=== PATIENT | male | born 1995 | race Caucasian/White ===

== ENCOUNTER 2018-01-11 11:20 | Emergency (ER) | payer OTHER, MEDICAID, SELFPAY ==
[2018-01-11 11:34] VITALS: BP 113/79; PULSE 88; RESP 19; TEMP 36.8; O2SAT 100; BMI 22.1
[2018-01-11 14:52] VITALS: BP 118/77; PULSE 74; RESP 14; O2SAT 99
[2018-01-11 16:37] LABS: Add Manual Diff / Slide Review NO; Basophils Percent Auto 0.9 % (0-2); Eosinophils Percent Auto 3.6 % (2-4); Hematocrit 38.5 % (41-53); Hemoglobin 12.9 g/dL (13.5-17.5); Lymphocytes Percent Auto 30.4 % (25-40); Mean Corpuscular HGB Conc 33.5 % (30-36); Mean Corpuscular Hemoglobin 28.5 PG (26-34); Mean Corpuscular Volume 85.1 fL (80-100); Monocytes Percent Auto 8.9 % (3-14); Neutrophils Absolute Auto 3800 /uL (3000-5900); Neutrophils Percent Auto 56.2 % (50-75); Platelet Count 316 X10^3/uL (150-400); Red Blood Cell Count 4.52 X10^6/uL (4.5-5.9); Red Cell Distribution Width 13.1 % (11.6-14.8); White Blood Cell Count 6.7 X10^3/uL (4.5-11.0)
[2018-01-11 16:50] LABS: Alanine Aminotransferase 42 IU/L (21-72); Albumin 4.3 g/dL (3.5-5.0); Albumin Globulin Ratio 1.7 (1.0-2.8); Alkaline Phosphatase 61 U/L (38-126); Aspartate Aminotransferase 33 IU/L (17-59); BUN Creatinine Ratio 11.3 (6-22); Bilirubin Total 0.8 mg/dL (0.2-1.3); Blood Urea Nitrogen 9 mg/dL (9-20); Calcium 9.4 mg/dL (8.4-10.2); Carbon Dioxide 28 mmol/L (22-32); Chloride 103 mmol/L (98-107); Estimated Glomerular Filt Rate > 60.0 mL/min (>60); Ethanol (ETOH) < 10 mg/dL; Globulin 2.6 g/dL (1.7-4.1); Glucose 84 mg/dL (70-100); HEMOLYSIS < 15 (0-50); Potassium 3.9 mmol/L (3.4-5.1); Sodium 144 mmol/L (137-145); Total Protein 6.9 g/dL (6.3-8.2)
[2018-01-11 17:02] LABS: Appearance Urine UA CLEAR; Bilirubin Urine UA 1+ (NEGATIVE); Color Urine UA ORANGE; Glucose Urine UA TRACE g/dL (Normal); Ketones Urine UA TRACE (NEGATIVE); Leukocyte Esterase Urine UA NEGATIVE (NEGATIVE); Nitrite Urine UA NEGATIVE (Negative); Occult Blood Urine UA NEGATIVE (Negative); Protein Urine UA TRACE (Negative); Specific Gravity Urine UA >=1.030 (1.000-1.035)
[2018-01-11 17:11] LABS: Urine Amphetamines Positive (Negative); Urine Barbiturates Negative (Negative); Urine Benzodiazepines Negative (Negative); Urine Cocaine Negative (Negative); Urine MDMA Positive (Negative); Urine Methadone Negative (Negative); Urine Methamphetamines Positive (Negative); Urine Morphine/Opi cutoff 2000 Positive (Negative); Urine Oxycodone Negative (Negative); Urine Phencyclidine Negative (Negative); Urine Tetrahydrocannabinol Positive (Negative); Urine Tricyclic Antidepressant Negative (Negative)
[2018-01-11 17:13] VITALS: BP 117/71; PULSE 67; RESP 15; O2SAT 100
[2018-01-11 17:16] LABS: Ictotest Urine Positive (Negative)
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
[2018-01-11 19:22] VITALS: BP 104/59; PULSE 82; RESP 16; O2SAT 100
[2018-01-11 22:00] VITALS: BP 107/69; PULSE 60; RESP 12; O2SAT 97
[2018-01-12 00:09] VITALS: BP 115/69; PULSE 63; RESP 16; O2SAT 98
[2018-01-12 08:02] VITALS: BP 112/77; PULSE 78; RESP 16; O2SAT 99
[2018-01-12 11:17] VITALS: BP 114/75; PULSE 76; RESP 14; O2SAT 99
--- NOTE | 2018-01-12 11:18 | PC.NURSE ---
Patient has asked for food and fluids. I gave him snacks from ICU and juice. Patient being cooperative with signing transport paperwork.
== END 2018-01-12 11:57 ==
PROVIDERS: Emergency Provider Emergency Medicine
DX: R45.851 Suicidal ideations (principal)
CPT/HCPCS: 80053; 80305; 80320; 81003; 85025; 99283